=== PATIENT | female | born 1995 | race Caucasian/White ===

== ENCOUNTER 2017-09-10 05:23 | Inpatient (IN) | payer BC, MEDICAID ==
--- NOTE | 2017-09-10 10:22 | PCM.LDHP ---
L&D History of Present Illness - General Date of Service: 09/10/17 Admit Problem/Dx: Admission Diagnosis/Problem Admission Diagnosis/Problem Source of Information: Patient History Limitations: Reports: No Limitations - History of Present Illness Introduction:: 21-year-old 001 TIM 09/17/17 at 39 weeks and 0 days. Group B strep positive. Patient lives in [place] patient has had problems with gestational hypertension and presented to labor and delivery today with irregular contractions and elevated blood pressures. Blood pressures have more normalized now. Temperature outside is -17 and predicted to be -36 tonight patient and live in [facility] which is approximately [address] in good weather. With patient's irregular contractions, sporadic elevated blood pressures, and distance from the hospital will proceed with induction of labor for patient's safety and to hopefully decrease comorbidity and co-mortality for the patient and the if delivery would occur in route while on the Highway end this severe winter watch. Blood type is a positive antibody screen negative initial hemoglobin and hematocrit 02/15/1711.8/38.2 platelets 376,000. Hemoglobin now 10.5 and platelets 219,000. Hepatitis B surface antigen negative hepatitis C negative HIV negative Chlamydia and GC negative rubella titer indicates immunity. 1 hour OB glucose screen on 07/05/17/10/06. Options were given to patient and and plan is as above. Previous delivery at term 38 weeks and 3 days weighted 9 lbs. 12 oz. (4423 g) Timing/Duration: Reports: intermittent Location, : Reports: Abdomen, Lower back Severity: Mild Improves with: Reports: None Worsens with: Reports: None Associated Symptoms: Reports: N - Related Data Allergies/Adverse Reactions: Allergies Allergy/AdvReac Type Severity Reaction Status Date / Time No Known Allergies Allergy Verified 09/10/17 05:57 Home Medications: Home Meds Pnv No.122/Iron/Folic Acid [ Multi Tablet] 1 each PO DAILY 09/10/17 [ History] Past Medical History - Past Health History Medical/Surgical History: Denies Medical/Surgical History Cardiovascular History: Reports: None Respiratory History: Reports: None 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 vits Social & Family History - Family History Family Medical History: Noncontributory - Tobacco Use Smoking Status *Q: Former Smoker (quit when preg. smoked 2 years) Second Hand Smoke Exposure: No - Caffeine Use Caffeine Use: Reports: None - Alcohol Use Days Per Week of Alcohol Use: 0 - Recreational Drug Use Recreational Drug Use: No H&P Review of Systems - Review of Systems: Review Of Systems: See Below General: Reports: No Symptoms HEENT: Reports: No Symptoms Pulmonary: Reports: No Symptoms Cardiovascular: Reports: No Symptoms Gastrointestinal: Reports: No Symptoms Genitourinary: Reports: No Symptoms Musculoskeletal: Reports: No Symptoms Skin: Reports: No Symptoms Psychiatric: Reports: No Symptoms Neurological: Reports: No Symptoms Hematologic/Lymphatic: Reports: No Symptoms Immunologic: Reports: No Symptoms L&D Exam - Exam Exam: See Below - Vital Signs Weight: 281 lb 11.2 oz - OB Specific Fundal Height In cm: 39 Contraction Intensity: Mild Movement: Active Heart Tones: Present Heart Tones per Min: 135 Heart Rate (FHR) Variability: Moderate (6-25 bmp) Presentation: Vertex - Sheehan Score Sheehan Score Cervix Position: Posterior Sheehan Score Consistency: Soft Sheehan Score Effacement: 0-30% Sheehan Score Dilation: 1-2 cm Sheehan Score Infant's Station: -3 Sheehan Score Total: 3 - Exam General: Alert, Oriented HEENT: Conjunctiva Clear, Mucosa Moist & [place], PERRLA Neck: Supple, Trachea Midline Lungs: Clear to Auscultation, Normal Respiratory Effort Cardiovascular: Regular Rate, Regular Rhythm GI/Abdominal Exam: Normal Bowel Sounds, Soft, Non-Tender, No Organomegaly, No Distention Genitourinary: Normal external exam, Normal bimanual exam, Normal speculum exam Extremities: Normal Inspection, Normal Range of Motion, Non-Tender, No Pedal Edema, Normal Capillary Refill Skin: Warm, Dry, Intact Neurological: Reflexes Equal Bilateral Psychiatric: Alert, Normal Affect, Normal Mood - Patient Data Lab Results Last 24 hrs: Laboratory Results - last 24 hr 09/10/17 09/10/17 09/10/17 Range/Units 06:30 06:30 08:30 WBC 8.02 (3.98-10.04) K/mm3 RBC 4.38 (3.98-5.22) M/mm3 Hgb 10.5 L (11.2-15.7) gm/L Hct 32.7 L (34.1-44.9) % MCV 74.7 L (79.4-94.8) fl MCH 24.0 L (25.6-32.2) pg MCHC 32.1 L (32.2-35.5) g/dl RDW Std Deviation 44.9 (36.4-46.3) fL Plt Count 219 (182-369) K/mm3 MPV 11.1 (9.4-12.3) fl Neut % (Auto) 65.3 (34.0-71.1) % Lymph % (Auto) 25.8 (19.3-51.7) % [place] % (Auto) 7.5 (4.7-12.5) % Eos % (Auto) 0.6 L (0.7-5.8) Baso % (Auto) 0.2 (0.1-1.2) % Neut # (Auto) 5.23 (1.56-6.13) K/mm3 Lymph # (Auto) 2.07 (1.18-3.74) K/mm3 [place] # (Auto) 0.60 H (0.24-0.36) K/mm3 Eos # (Auto) 0.05 (0.04-0.36) K/mm3 Baso # (Auto) 0.02 (0.01-0.08) K/mm3 Manual Slide Review Abnormal smear BUN 5 L (7-18) mg/dL Creatinine 0.6 (0.55-1.02) mg/dL Est Cr Clr Drug Dosing 160.39 mL/min Estimated GFR (MDRD) > 60 (>60) mL/min Uric Acid 5.2 (2.6-6.0) mg/dL AST 28 (15-37) U/L ALT 14 (14-59) U/L Lactate Dehydrogenase 164 (81-234) U/L Urine Color Yellow (Yellow) Urine Appearance Clear (Clear) Urine pH 7.0 (5.0-8.0) Ur Specific [place] 1.020 (1.005-1.030) Urine Protein Negative (Negative) Urine Glucose (UA) Negative (Negative) Urine Ketones Negative (Negative) Urine Occult Blood Trace-intact H (Negative) Urine Nitrite Negative (Negative) Urine Bilirubin Negative (Negative) Urine Urobilinogen 0.2 (0.2-1.0) Ur Leukocyte Esterase Negative (Negative) Urine RBC 0-5 (0-5) /hpf Urine WBC 0-5 (0-5) /hpf Ur Epithelial Cells 0-5 (0-5) /hpf Urine Bacteria Few (FEW) /hpf Urine Mucus Few (FEW) /hpf Result Diagrams: 09/10/17 06:30 09/10/17 06:30 - Problem List (1) Anemia affecting second SNOMED Code(s): 65653183 ICD Code: O99.019 - ANEMIA COMPLICATING , UNSPECIFIED TRIMESTER; O09.40 - SUPERVISION OF W GRAND MULTIPARITY, UNSP TRIMESTER Status: Acute Current Visit: Yes (2) GBS carrier SNOMED Code(s): 4127090556161 ICD Code: Z22.330 - CARRIER OF GROUP B STREPTOCOCCUS Status: Acute Current Visit: Yes (3) 39 weeks gestation of SNOMED Code(s): 23026967 ICD Code: Z3A.39 - 39 WEEKS GESTATION OF Status: Acute Current Visit: Yes (4) Gestational hypertension SNOMED Code(s): 24166408 ICD Code: O13.9 - GESTATIONAL HTN W/O SIGNIFICANT PROTEINURIA, UNSP TRIMESTER Status: Acute Current Visit: Yes Qualifiers: Trimester: third trimester Qualified Code(s): O13.3 - Gestational [ -induced] hypertension without significant proteinuria, third trimester Problem List Initiated/Reviewed/Updated: No Orders Last 24hrs: Active Orders 24 hr Category Date Time Status PIH Panel [LIZA] Stat [facility] 09/10/17 06:04 Ordered Assessment/Plan Comment:: Plan induction of labor beginning with Cytotec.
[2017-09-10] MEDS ORDERED: Ampicillin 2 GM in Sodium Chloride 0.9% 100 ML IV ONE (10:25)
[2017-09-10] MEDS ORDERED: Nalbuphine 20 MG/1 ML Amp IVPUSH PRN (10:25)
[2017-09-10] MEDS ORDERED: Ondansetron 4 MG/2 ML SDV IVPUSH PRN (10:25)
[2017-09-10] MEDS ORDERED: Sodium Chloride 0.9% 10 ML Syringe FLUSH PRN (10:25)
[2017-09-10] MEDS ORDERED: Misoprostol 25 MCG (1/4 of 100 MCG) Tab VAG SCH (10:30)
[2017-09-10] MEDS: Lactated Ringers 1,000 ML IV SCH ×3 (11:02→21:31)
[2017-09-10] MEDS ORDERED: Oxytocin/Lactated Ringers 10 UNIT/1,000 ML BAG IV SCH (11:15)
[2017-09-10] MEDS ORDERED: ePHEDrine 50 MG/ML SDV IVPUSH PRN (12:38)
[2017-09-10] MEDS ORDERED: fentaNYL 100 MCG/2 ML SDV EPIDUR PRN (12:38)
[2017-09-10] MEDS ORDERED: diphenhydrAMINE 50 MG/ML SDV IVPUSH PRN (12:38)
[2017-09-10] MEDS ORDERED: Bupivacaine/fentaNYL/NS 100 ML Bag EPIDUR SCH (12:45)
--- NOTE | 2017-09-10 12:48 | PCM.PREANE ---
Preanesthetic Assessment - Anesthesia/Transfusion/Family Hx Anesthesia History: Prior Anesthesia Without Reaction Family History of Anesthesia Reaction: No Transfusion History: No Prior Transfusion(s) - Review of Systems General: No Symptoms Pulmonary: No Symptoms Cardiovascular: No Symptoms Gastrointestinal: No Symptoms Neurological: No Symptoms Other: Reports: None - Physical Assessment Pulse: 84 O2 Sat by Pulse Oximetry: 97 Respiratory Rate: 16 Blood Pressure: 134/65 Temperature: 36.6 C Height: 1.78 m Weight: 127.777 kg ASA Class: 2 Mental Status: Alert & Oriented x3 Airway Class: Mallampati = 1 Dentition: Reports: Normal Dentition Thyro-Mental Finger Breadths: 3 Mouth Opening Finger Breadths: 2 ROM/Head Extension: Full Lungs: Clear to Auscultation, Normal Respiratory Effort Cardiovascular: Regular Rate, Regular Rhythm - Lab Values: Laboratory Last Values WBC 8.02 K/mm3 (3.98-10.04) 09/10/17 06:30 RBC 4.38 M/mm3 (3.98-5.22) 09/10/17 06:30 Hgb 10.5 gm/L (11.2-15.7) L 09/10/17 06:30 Hct 32.7 % (34.1-44.9) L 09/10/17 06:30 MCV 74.7 fl (79.4-94.8) L 09/10/17 06:30 MCH 24.0 pg (25.6-32.2) L 09/10/17 06:30 MCHC 32.1 g/dl (32.2-35.5) L 09/10/17 06:30 RDW Std Deviation 44.9 fL (36.4-46.3) 09/10/17 06:30 Plt Count 219 K/mm3 (182-369) 09/10/17 06:30 MPV 11.1 fl (9.4-12.3) 09/10/17 06:30 Neut % (Auto) 65.3 % (34.0-71.1) 09/10/17 06:30 Lymph % (Auto) 25.8 % (19.3-51.7) 09/10/17 06:30 [place] % (Auto) 7.5 % (4.7-12.5) 09/10/17 06:30 Eos % (Auto) 0.6 (0.7-5.8) L 09/10/17 06:30 Baso % (Auto) 0.2 % (0.1-1.2) 09/10/17 06:30 Neut # (Auto) 5.23 K/mm3 (1.56-6.13) 09/10/17 06:30 Lymph # (Auto) 2.07 K/mm3 (1.18-3.74) 09/10/17 06:30 [place] # (Auto) 0.60 K/mm3 (0.24-0.36) H 09/10/17 06:30 Eos # (Auto) 0.05 K/mm3 (0.04-0.36) 09/10/17 06:30 Baso # (Auto) 0.02 K/mm3 (0.01-0.08) 09/10/17 06:30 Manual Slide Review Abnormal smear 09/10/17 06:30 BUN 5 mg/dL (7-18) L 09/10/17 06:30 Creatinine 0.6 mg/dL (0.55-1.02) 09/10/17 06:30 Est Cr Clr Drug Dosing 160.39 mL/min 09/10/17 06:30 Estimated GFR (MDRD) > 60 mL/min (>60) 09/10/17 06:30 Uric Acid 5.2 mg/dL (2.6-6.0) 09/10/17 06:30 AST 28 U/L (15-37) 09/10/17 06:30 ALT 14 U/L (14-59) 09/10/17 06:30 Lactate Dehydrogenase 164 U/L (81-234) 09/10/17 06:30 Urine Color Yellow (Yellow) 09/10/17 08:30 Urine Appearance Clear (Clear) 09/10/17 08:30 Urine pH 7.0 (5.0-8.0) 09/10/17 08:30 Ur Specific [place] 1.020 (1.005-1.030) 09/10/17 08:30 Urine Protein Negative (Negative) 09/10/17 08:30 Urine Glucose (UA) Negative (Negative) 09/10/17 08:30 Urine Ketones Negative (Negative) 09/10/17 08:30 Urine Occult Blood Trace-intact (Negative) H 09/10/17 08:30 Urine Nitrite Negative (Negative) 09/10/17 08:30 Urine Bilirubin Negative (Negative) 09/10/17 08:30 Urine Urobilinogen 0.2 (0.2-1.0) 09/10/17 08:30 Ur Leukocyte Esterase Negative (Negative) 09/10/17 08:30 Urine RBC 0-5 /hpf (0-5) 09/10/17 08:30 Urine WBC 0-5 /hpf (0-5) 09/10/17 08:30 Ur Epithelial Cells 0-5 /hpf (0-5) 09/10/17 08:30 Urine Bacteria Few /hpf (FEW) 09/10/17 08:30 Urine Mucus Few /hpf (FEW) 09/10/17 08:30 Blood Type A POSITIVE 09/10/17 06:30 Gel Antibody Screen Negative 09/10/17 06:30 - Allergies Allergies/Adverse Reactions: Allergies Allergy/AdvReac Type Severity Reaction Status Date / Time No Known Allergies Allergy Verified 09/10/17 05:57 - Anesthesia Plan Pre-Op Medication Ordered: None - Acknowledgements Anesthesia Type Planned: Epidural Pt an Appropriate Candidate for the Planned Anesthesia: Yes Alternatives and Risks of Anesthesia Discussed w Pt/Guardian: Yes Pt/Guardian Understands and Agrees with Anesthesia Plan: Yes PreAnesthesia Questionnaire - Past Health History Medical/Surgical History: Denies Medical/Surgical History Cardiovascular History: Reports: None Respiratory History: Reports: None Gastrointestinal History: Reports: GERD [employer] History: Reports: - Past Surgical History HEENT Surgical History: Reports: Oral Surgery - History Comment History Comment: home meds. vits - SUBSTANCE USE Smoking Status *Q: Former Smoker (quit when preg. smoked 2 years) Tobacco Use Within Last Twelve Months: Cigarettes Second Hand Smoke Exposure: No Days Per Week of Alcohol Use: 0 Number of Drinks Per Day: 0 Total Drinks Per Week: 0 Recreational Drug Use History: No - HOME MEDS Home Medications: Home Meds Pnv No.122/Iron/Folic Acid [ Multi Tablet] 1 each PO DAILY 09/10/17 [ History] - CURRENT (IN HOUSE) MEDS Current Meds: Current Medications Diphenhydramine HCl (Benadryl) 25 mg IVPUSH Q6H PRN PRN Reason: Itching Ephedrine Sulfate (Ephedrine Sulfate) 5 mg IVPUSH ASDIRECTED PRN PRN Reason: HYPOTENTSION Fentanyl (Sublimaze) 100 mcg EPIDUR Q3H PRN PRN Reason: PAIN Fentanyl/Bupivacaine HCl (Fentanyl/Bupivacaine/Ns 2 Mcg-0.125% 100 Ml) 100 ml EPIDUR ASDIRECTED BLAYNE Ampicillin Sodium 1 gm/ Sodium (Chloride) 100 mls @ 200 mls/hr IV Q4H BLAYNE Lactated Ringer's (Ringers, Lactated) 1,000 mls @ 100 mls/hr IV ASDIRECTED BLAYNE Last Admin: 09/10/17 11:02 Dose: 100 mls/hr Oxytocin 20 unit/ Lactated (Ringer's) 1,002 mls @ 6.01 mls/hr IV TITRATE BLAYNE; 2 MUNITS/MIN PRN Reason: Protocol Oxytocin/Lactated Ringer's (Pitocin In Lr 10 Units/1,000 Ml) 10 unit in 1,000 mls @ 12 mls/hr IV TITRATE BLAYNE; 2 MUNITS/MIN PRN Reason: Protocol Last Admin: 09/10/17 11:31 Dose: 2 munits/min, 12 mls/hr Nalbuphine HCl (Nubain) 10 mg IVPUSH Q2H PRN PRN Reason: Pain (moderate 4-6) Ondansetron HCl (Zofran) 4 mg IVPUSH Q4H PRN PRN Reason: Nausea/Vomiting Sodium Chloride (Saline Flush) 10 ml FLUSH ASDIRECTED PRN PRN Reason: Keep Vein Open Discontinued Medications Ampicillin Sodium 2 gm/ Sodium (Chloride) 100 mls @ 200 mls/hr IV ONETIME ONE Stop: 09/10/17 10:54 Last Admin: 09/10/17 11:01 Dose: 200 mls/hr Misoprostol (Cytotec) 25 mcg VAG Q3H BLAYNE Stop: 09/10/17 16:31 Last Admin: 09/10/17 11:32 Dose: Not Given
[2017-09-10] MEDS: Ampicillin 1 GM in Sodium Chloride 0.9% 100 ML IV SCH ×3 (14:42→23:26)
--- NOTE | 2017-09-10 21:23 | PCM.SN ---
- Free Text/Narrative Note: Spontaneous rupture membranes 1948 hrs. clear fluid. Cervix now at 2120 hours is 5 cm 60% effaced soft mid position Vertex -1 category 1 heart rate continuing Pitocin augmentation.
[2017-09-11] MEDS ORDERED: Lidocaine 1% 50 ML MDV ONE (00:11)
--- NOTE | 2017-09-11 00:33 | PCM.DEL ---
L & D Note - General Info Date of Service: 09/11/17 Mother's Due Date: 09/17/17 - Delivery Note Labor: Augmented by Oxytocin Delivery Outcome: Livebirth (Female liveborn 0008 hours 09/11/17 PRADIP Apgars 9/9 weight 4150 g 9 pounds 2.4 ounces nuchal cord 1) Infant Delivery Method: Spontaneous Vaginal Delivery-Single Delivery Mode: Spontaneous Presentation: Left Occiput Anterior (PRADIP) Nuchal Cord: Present (Times one), Reduced Prep: Povidone-Iodine (Betadine Anesthesia Type: Local, Epidural Anesthetic: Lidocaine (Xylocaine) 1% Plain (15 mL) Local Anesthetic Volume: Other (15 mL) Amniotic Fluid Description: Clear Episiotomy Type: None Laceration: 2nd Degree (Midline) Suture type: Vicryl (2-0 Vicryl times one), Other (Monocryl 3-0 times one) Suture size: 2-0 Placenta: Intact, Spontaneous (0012 hours on 09/11/2017 intact central cord insertion) Cord: 3 Vessels Estimated Blood Loss: 500 Resuscitation Needed: No : Suctioned, Bulb Syringe, Stimulated, Warmed, [place] Used, Warmer Used Provider: Sánchez Robertson Score 1 min: 9 Score 5 min: 9 - Patient Data Vitals - Most Recent: Last Vital Signs Temp 97.9 F 09/10/17 12:48 Pulse 84 09/10/17 12:48 Resp 16 09/10/17 12:48 BP 134/65 09/10/17 12:48 Pulse Ox 97 09/10/17 12:48 Weight - Most Recent: 281 lb 11.2 oz I&O - Last 24 Hours: Intake & Output 09/10/17 09/10/17 09/11/17 14:59 22:59 06:59 Intake Total 200 Balance 200 Lab Results Last 24 Hours: Laboratory Results - last 24 hr 09/10/17 09/10/17 09/10/17 Range/Units 06:30 06:30 06:30 WBC 8.02 (3.98-10.04) K/mm3 RBC 4.38 (3.98-5.22) M/mm3 Hgb 10.5 L (11.2-15.7) gm/L Hct 32.7 L (34.1-44.9) % MCV 74.7 L (79.4-94.8) fl MCH 24.0 L (25.6-32.2) pg MCHC 32.1 L (32.2-35.5) g/dl RDW Std Deviation 44.9 (36.4-46.3) fL Plt Count 219 (182-369) K/mm3 MPV 11.1 (9.4-12.3) fl Neut % (Auto) 65.3 (34.0-71.1) % Lymph % (Auto) 25.8 (19.3-51.7) % [place] % (Auto) 7.5 (4.7-12.5) % Eos % (Auto) 0.6 L (0.7-5.8) Baso % (Auto) 0.2 (0.1-1.2) % Neut # (Auto) 5.23 (1.56-6.13) K/mm3 Lymph # (Auto) 2.07 (1.18-3.74) K/mm3 [place] # (Auto) 0.60 H (0.24-0.36) K/mm3 Eos # (Auto) 0.05 (0.04-0.36) K/mm3 Baso # (Auto) 0.02 (0.01-0.08) K/mm3 Manual Slide Review Abnormal smear BUN 5 L (7-18) mg/dL Creatinine 0.6 (0.55-1.02) mg/dL Est Cr Clr Drug Dosing 160.39 mL/min Estimated GFR (MDRD) > 60 (>60) mL/min Uric Acid 5.2 (2.6-6.0) mg/dL AST 28 (15-37) U/L ALT 14 (14-59) U/L Lactate Dehydrogenase 164 (81-234) U/L Urine Color (Yellow) Urine Appearance (Clear) Urine pH (5.0-8.0) Ur Specific [place] (1.005-1.030) Urine Protein (Negative) Urine Glucose (UA) (Negative) Urine Ketones (Negative) Urine Occult Blood (Negative) Urine Nitrite (Negative) Urine Bilirubin (Negative) Urine Urobilinogen (0.2-1.0) Ur Leukocyte Esterase (Negative) Urine RBC (0-5) /hpf Urine WBC (0-5) /hpf Ur Epithelial Cells (0-5) /hpf Urine Bacteria (FEW) /hpf Urine Mucus (FEW) /hpf Blood Type A POSITIVE Gel Antibody Screen Negative 09/10/17 Range/Units 08:30 WBC (3.98-10.04) K/mm3 RBC (3.98-5.22) M/mm3 Hgb (11.2-15.7) gm/L Hct (34.1-44.9) % MCV (79.4-94.8) fl MCH (25.6-32.2) pg MCHC (32.2-35.5) g/dl RDW Std Deviation (36.4-46.3) fL Plt Count (182-369) K/mm3 MPV (9.4-12.3) fl Neut % (Auto) (34.0-71.1) % Lymph % (Auto) (19.3-51.7) % [place] % (Auto) (4.7-12.5) % Eos % (Auto) (0.7-5.8) Baso % (Auto) (0.1-1.2) % Neut # (Auto) (1.56-6.13) K/mm3 Lymph # (Auto) (1.18-3.74) K/mm3 [place] # (Auto) (0.24-0.36) K/mm3 Eos # (Auto) (0.04-0.36) K/mm3 Baso # (Auto) (0.01-0.08) K/mm3 Manual Slide Review BUN (7-18) mg/dL Creatinine (0.55-1.02) mg/dL Est Cr Clr Drug Dosing mL/min Estimated GFR (MDRD) (>60) mL/min Uric Acid (2.6-6.0) mg/dL AST (15-37) U/L ALT (14-59) U/L Lactate Dehydrogenase (81-234) U/L Urine Color Yellow (Yellow) Urine Appearance Clear (Clear) Urine pH 7.0 (5.0-8.0) Ur Specific [place] 1.020 (1.005-1.030) Urine Protein Negative (Negative) Urine Glucose (UA) Negative (Negative) Urine Ketones Negative (Negative) Urine Occult Blood Trace-intact H (Negative) Urine Nitrite Negative (Negative) Urine Bilirubin Negative (Negative) Urine Urobilinogen 0.2 (0.2-1.0) Ur Leukocyte Esterase Negative (Negative) Urine RBC 0-5 (0-5) /hpf Urine WBC 0-5 (0-5) /hpf Ur Epithelial Cells 0-5 (0-5) /hpf Urine Bacteria Few (FEW) /hpf Urine Mucus Few (FEW) /hpf Blood Type Gel Antibody Screen Med Orders - Current: Current Medications Diphenhydramine HCl (Benadryl) 25 mg IVPUSH Q6H PRN PRN Reason: Itching Ephedrine Sulfate (Ephedrine Sulfate) 5 mg IVPUSH ASDIRECTED PRN PRN Reason: HYPOTENTSION Fentanyl (Sublimaze) 100 mcg EPIDUR Q3H PRN PRN Reason: PAIN Last Admin: 09/10/17 20:40 Dose: 100 mcg Fentanyl/Bupivacaine HCl (Fentanyl/Bupivacaine/Ns 2 Mcg-0.125% 100 Ml) 100 ml EPIDUR ASDIRECTED BLAYNE Last Admin: 09/10/17 20:40 Dose: 100 ml Ampicillin Sodium 1 gm/ Sodium (Chloride) 100 mls @ 200 mls/hr IV Q4H BLAYNE Last Admin: 09/10/17 23:26 Dose: 200 mls/hr Lactated Ringer's (Ringers, Lactated) 1,000 mls @ 100 mls/hr IV ASDIRECTED BLAYNE Last Admin: 09/10/17 21:31 Dose: 999 mls/hr Oxytocin 20 unit/ Lactated (Ringer's) 1,002 mls @ 6.01 mls/hr IV TITRATE BLAYNE; 2 MUNITS/MIN PRN Reason: Protocol Oxytocin/Lactated Ringer's (Pitocin In Lr 10 Units/1,000 Ml) 10 unit in 1,000 mls @ 12 mls/hr IV TITRATE BLAYNE; 2 MUNITS/MIN PRN Reason: Protocol Last Titration: 09/10/17 23:00 Dose: 17 munits/min, 102 mls/hr Nalbuphine HCl (Nubain) 10 mg IVPUSH Q2H PRN PRN Reason: Pain (moderate 4-6) Last Admin: 09/10/17 18:56 Dose: 10 mg Ondansetron HCl (Zofran) 4 mg IVPUSH Q4H PRN PRN Reason: Nausea/Vomiting Sodium Chloride (Saline Flush) 10 ml FLUSH ASDIRECTED PRN PRN Reason: Keep Vein Open Discontinued Medications Ampicillin Sodium 2 gm/ Sodium (Chloride) 100 mls @ 200 mls/hr IV ONETIME ONE Stop: 09/10/17 10:54 Last Admin: 09/10/17 11:01 Dose: 200 mls/hr Lidocaine HCl (Xylocaine 1%) Confirm Administered Dose 50 ml .ROUTE .STK-MED ONE Stop: 09/11/17 00:12 Misoprostol (Cytotec) 25 mcg VAG Q3H BLAYNE Stop: 09/10/17 16:31 Last Admin: 09/10/17 11:32 Dose: Not Given - Problem List & Annotations (1) Anemia affecting second SNOMED Code(s): 14854052 Code(s): O99.019 - ANEMIA COMPLICATING , UNSPECIFIED TRIMESTER; O09.40 - SUPERVISION OF W GRAND MULTIPARITY, UNSP TRIMESTER Status: Acute Current Visit: Yes (2) GBS carrier SNOMED Code(s): 6011382254232 Code(s): Z22.330 - CARRIER OF GROUP B STREPTOCOCCUS Status: Acute Current Visit: Yes (3) 39 weeks gestation of SNOMED Code(s): 61880892 Code(s): Z3A.39 - 39 WEEKS GESTATION OF Status: Acute Current Visit: Yes (4) Gestational hypertension SNOMED Code(s): 59953222 Code(s): O13.9 - GESTATIONAL HTN W/O SIGNIFICANT PROTEINURIA, UNSP TRIMESTER Status: Acute Current Visit: Yes Qualifiers: Trimester: third trimester Qualified Code(s): O13.3 - Gestational [ -induced] hypertension without significant proteinuria, third trimester (5) Second degree perineal laceration, delivered, current hospitalization SNOMED Code(s): 672908974 Code(s): O70.1 - SECOND DEGREE PERINEAL LACERATION DURING DELIVERY Status: Acute Current Visit: Yes (6) Nuchal cord without compression, delivered, current hospitalization SNOMED Code(s): 97883388 Code(s): O69.81X0 - LABOR AND DEL COMP BY CORD AROUND NECK, W/O COMPRSN, UNSP Status: Acute Current Visit: Yes - Problem List Review Problem List Initiated/Reviewed/Updated: No - My Orders Last 24 Hours: My Active Orders 09/10/17 06:04 PIH Panel [OM.PC] Stat 09/10/17 10:25 Patient Status [ADT] Routine Activity as Tolerated [RC] PFP Communication Order [RC] ASDIRECTED Notify Provider [RC] PFP Notify Provider [RC] PRN Vital Signs [RC] PER UNIT ROUTINE Nalbuphine [Nubain] 10 mg IVPUSH Q2H PRN Ondansetron [Zofran] 4 mg IVPUSH Q4H PRN Sodium Chloride 0.9% [Saline Flush] 10 ml FLUSH ASDIRECTED PRN Electronic Heart Tones Ext w TOCO [WOMSER] Routine Electronic Heart Tones Internal [WOMSER] Per Unit Routine Peripheral IV Insertion Adult [OM.PC] Routine Resuscitation Status Routine 09/10/17 10:26 Peripheral IV Care [RC] . DIRECTED 09/10/17 10:30 Lactated Ringers [Ringers, Lactated] 1,000 ml IV ASDIRECTED Oxytocin [Pitocin] 20 unit Lactated Ringers [Ringers, Lactated] 1,000 ml IV TITRATE 09/10/17 11:15 Oxytocin/Lactated Ringers [Pitocin in LR 10 Units/1,000 ML] 10 unit in 1,000 ml IV TITRATE 09/10/17 14:30 Ampicillin 1 gm Sodium Chloride 0.9% [Normal Saline] 100 ml IV Q4H 09/10/17 Breakfast Regular Diet [DIET] - Plan Plan:: Plan induction of labor beginning with Cytotec.
[2017-09-11] MEDS ORDERED: Lanolin 100% Cream 7 GM Tube TOP PRN (00:40)
[2017-09-11] MEDS ORDERED: Witch Hazel Medicated Pads 100/Jar TOP PRN (00:40)
[2017-09-11] MEDS ORDERED: Acetaminophen 325 MG Tab PO PRN (00:40)
[2017-09-11] MEDS ORDERED: Benzocaine/Menthol 20%-0.5% Spray 56 GM Canister TOP PRN (00:40)
[2017-09-11] MEDS ORDERED: Docusate Sodium 100 MG Cap PO PRN (00:40)
[2017-09-11] MEDS ORDERED: Acetaminophen/oxyCODONE 325-5 MG Tab PO PRN (00:40)
[2017-09-11] MEDS: Ibuprofen 600 MG Tab PO PRN ×4 (01:40→22:57)
--- NOTE | 2017-09-11 11:13 | PCM.SN ---
- Free Text/Narrative Note: day 1 Afebrile, uterus involuting normally, no heavy vaginal bleeding, no leg cramping. Breast-feeding.
[2017-09-11] MEDS ORDERED: Bupivacaine 0.25% 10 ML SDV ONE (22:22)
[2017-09-12] MEDS: Ibuprofen 600 MG Tab PO PRN ×2 (05:32→10:23)
--- NOTE | 2017-09-12 08:09 | PCM.DCSUM1 ---
Discharge Summary - Hospital Course Free Text/Narrative:: [facility] LIVE L/D Delivery Note Patient Name: KANNAN CHENG Date of : 89 Patient Status: Inpatient Attending Provider: Sánchez Robertson Date: 09/11/17 00:29 Initialization Date: 09/11/17 00:29 L & D Note - General Info Date of Service: 09/11/17 Mother's Due Date: 09/17/17 - Delivery Note Labor: Augmented by Oxytocin Delivery Outcome: Livebirth (Female liveborn 0008 hours 09/11/17 PRADIP Apgars 9/9 weight 4150 g 9 pounds 2.4 ounces nuchal cord 1) Infant Delivery Method: Spontaneous Vaginal Delivery-Single Infant Delivery Mode: Spontaneous Presentation: Left Occiput Anterior (PRADIP) Nuchal Cord: Present (Times one), Reduced Prep: Povidone-Iodine (Betadine Anesthesia Type: Local, Epidural Anesthetic: Lidocaine (Xylocaine) 1% Plain (15 mL) Local Anesthetic Volume: Other (15 mL) Amniotic Fluid Description: Clear Episiotomy Type: None Laceration: 2nd Degree (Midline) Suture type: Vicryl (2-0 Vicryl times one), Other (Monocryl 3-0 times one) Suture size: 2-0 Placenta: Intact, Spontaneous (0012 hours on 09/11/2017 intact central cord insertion) Cord: 3 Vessels Estimated Blood Loss: 500 Resuscitation Needed: No [place]: Suctioned, Bulb Syringe, Stimulated, Warmed, [place] Used, Warmer Used Provider: Sánchez Robertson Score 1 min: 9 Score 5 min: 9 - Patient Data Vitals - Most Recent: Last Vital Signs Temp 97.9 F 09/10/17 12:48 Pulse 84 09/10/17 12:48 Resp 16 09/10/17 12:48 BP 134/65 09/10/17 12:48 Pulse Ox 97 09/10/17 12:48 Weight - Most Recent: 281 lb 11.2 oz I&O - Last 24 Hours: Intake & Output 09/10/17 09/10/17 09/11/17 14:59 22:59 06:59 Intake Total 200 Balance 200 Lab Results Last 24 Hours: Laboratory Results - last 24 hr 09/10/17 09/10/17 09/10/17 Range/Units 06:30 06:30 06:30 WBC 8.02 (3.98-10.04) K/mm3 RBC 4.38 (3.98-5.22) M/mm3 Hgb 10.5 L (11.2-15.7) gm/L Hct 32.7 L (34.1-44.9) % MCV 74.7 L (79.4-94.8) fl MCH 24.0 L (25.6-32.2) pg MCHC 32.1 L (32.2-35.5) g/dl RDW Std Deviation 44.9 (36.4-46.3) fL Plt Count 219 (182-369) K/mm3 MPV 11.1 (9.4-12.3) fl Neut % (Auto) 65.3 (34.0-71.1) % Lymph % (Auto) 25.8 (19.3-51.7) % [place] % (Auto) 7.5 (4.7-12.5) % Eos % (Auto) 0.6 L (0.7-5.8) Baso % (Auto) 0.2 (0.1-1.2) % Neut # (Auto) 5.23 (1.56-6.13) K/mm3 Lymph # (Auto) 2.07 (1.18-3.74) K/mm3 [place] # (Auto) 0.60 H (0.24-0.36) K/mm3 Eos # (Auto) 0.05 (0.04-0.36) K/mm3 Baso # (Auto) 0.02 (0.01-0.08) K/mm3 Manual Slide Review Abnormal smear BUN 5 L (7-18) mg/dL Creatinine 0.6 (0.55-1.02) mg/dL Est Cr Clr Drug Dosing 160.39 mL/min Estimated GFR (MDRD) > 60 (>60) mL/min Uric Acid 5.2 (2.6-6.0) mg/dL AST 28 (15-37) U/L ALT 14 (14-59) U/L Lactate Dehydrogenase 164 (81-234) U/L Urine Color (Yellow) Urine Appearance (Clear) Urine pH (5.0-8.0) Ur Specific [place] (1.005-1.030) Urine Protein (Negative) Urine Glucose (UA) (Negative) Urine Ketones (Negative) Urine Occult Blood (Negative) Urine Nitrite (Negative) Urine Bilirubin (Negative) Urine Urobilinogen (0.2-1.0) Ur Leukocyte Esterase (Negative) Urine RBC (0-5) /hpf Urine WBC (0-5) /hpf Ur Epithelial Cells (0-5) /hpf Urine Bacteria (FEW) /hpf Urine Mucus (FEW) /hpf Blood Type A POSITIVE Gel Antibody Screen Negative 09/10/17 Range/Units 08:30 WBC (3.98-10.04) K/mm3 RBC (3.98-5.22) M/mm3 Hgb (11.2-15.7) gm/L Hct (34.1-44.9) % MCV (79.4-94.8) fl MCH (25.6-32.2) pg MCHC (32.2-35.5) g/dl RDW Std Deviation (36.4-46.3) fL Plt Count (182-369) K/mm3 MPV (9.4-12.3) fl Neut % (Auto) (34.0-71.1) % Lymph % (Auto) (19.3-51.7) % [place] % (Auto) (4.7-12.5) % Eos % (Auto) (0.7-5.8) Baso % (Auto) (0.1-1.2) % Neut # (Auto) (1.56-6.13) K/mm3 Lymph # (Auto) (1.18-3.74) K/mm3 [place] # (Auto) (0.24-0.36) K/mm3 Eos # (Auto) (0.04-0.36) K/mm3 Baso # (Auto) (0.01-0.08) K/mm3 Manual Slide Review BUN (7-18) mg/dL Creatinine (0.55-1.02) mg/dL Est Cr Clr Drug Dosing mL/min Estimated GFR (MDRD) (>60) mL/min Uric Acid (2.6-6.0) mg/dL AST (15-37) U/L ALT (14-59) U/L Lactate Dehydrogenase (81-234) U/L Urine Color Yellow (Yellow) Urine Appearance Clear (Clear) Urine pH 7.0 (5.0-8.0) Ur Specific [place] 1.020 (1.005-1.030) Urine Protein Negative (Negative) Urine Glucose (UA) Negative (Negative) Urine Ketones Negative (Negative) Urine Occult Blood Trace-intact H (Negative) Urine Nitrite Negative (Negative) Urine Bilirubin Negative (Negative) Urine Urobilinogen 0.2 (0.2-1.0) Ur Leukocyte Esterase Negative (Negative) Urine RBC 0-5 (0-5) /hpf Urine WBC 0-5 (0-5) /hpf Ur Epithelial Cells 0-5 (0-5) /hpf Urine Bacteria Few (FEW) /hpf Urine Mucus Few (FEW) /hpf Blood Type Gel Antibody Screen Med Orders - Current: Current Medications Diphenhydramine HCl (Benadryl) 25 mg IVPUSH Q6H PRN PRN Reason: Itching Ephedrine Sulfate (Ephedrine Sulfate) 5 mg IVPUSH ASDIRECTED PRN PRN Reason: HYPOTENTSION Fentanyl (Sublimaze) 100 mcg EPIDUR Q3H PRN PRN Reason: PAIN Last Admin: 09/10/17 20:40 Dose: 100 mcg Fentanyl/Bupivacaine HCl (Fentanyl/Bupivacaine/Ns 2 Mcg-0.125% 100 Ml) 100 ml EPIDUR ASDIRECTED BLAYNE Last Admin: 09/10/17 20:40 Dose: 100 ml Ampicillin Sodium 1 gm/ Sodium (Chloride) 100 mls @ 200 mls/hr IV Q4H BLAYNE Last Admin: 09/10/17 23:26 Dose: 200 mls/hr Lactated Ringer's (Ringers, Lactated) 1,000 mls @ 100 mls/hr IV ASDIRECTED BLAYNE Last Admin: 09/10/17 21:31 Dose: 999 mls/hr Oxytocin 20 unit/ Lactated (Ringer's) 1,002 mls @ 6.01 mls/hr IV TITRATE LBAYNE; 2 MUNITS/MIN PRN Reason: Protocol Oxytocin/Lactated Ringer's (Pitocin In Lr 10 Units/1,000 Ml) 10 unit in 1,000 mls @ 12 mls/hr IV TITRATE BLAYNE; 2 MUNITS/MIN PRN Reason: Protocol Last Titration: 09/10/17 23:00 Dose: 17 munits/min, 102 mls/hr Nalbuphine HCl (Nubain) 10 mg IVPUSH Q2H PRN PRN Reason: Pain (moderate 4-6) Last Admin: 09/10/17 18:56 Dose: 10 mg Ondansetron HCl (Zofran) 4 mg IVPUSH Q4H PRN PRN Reason: Nausea/Vomiting Sodium Chloride (Saline Flush) 10 ml FLUSH ASDIRECTED PRN PRN Reason: Keep Vein Open Discontinued Medications Ampicillin Sodium 2 gm/ Sodium (Chloride) 100 mls @ 200 mls/hr IV ONETIME ONE Stop: 09/10/17 10:54 Last Admin: 09/10/17 11:01 Dose: 200 mls/hr Lidocaine HCl (Xylocaine 1%) Confirm Administered Dose 50 ml .ROUTE .STK-MED ONE Stop: 09/11/17 00:12 Misoprostol (Cytotec) 25 mcg VAG Q3H BLAYNE Stop: 09/10/17 16:31 Last Admin: 09/10/17 11:32 Dose: Not Given - Problem List & Annotations (1) Anemia affecting second SNOMED Code(s): 84712210 Code(s): O99.019 - ANEMIA COMPLICATING , UNSPECIFIED TRIMESTER; O09.40 - SUPERVISION OF W GRAND MULTIPARITY, UNSP TRIMESTER Status: Acute Current Visit: Yes (2) GBS carrier SNOMED Code(s): 3926374383071 Code(s): Z22.330 - CARRIER OF GROUP B STREPTOCOCCUS Status: Acute Current Visit: Yes (3) 39 weeks gestation of SNOMED Code(s): 18367037 Code(s): Z3A.39 - 39 WEEKS GESTATION OF Status: Acute Current Visit: Yes (4) Gestational hypertension SNOMED Code(s): 26444322 Code(s): O13.9 - GESTATIONAL HTN W/O SIGNIFICANT PROTEINURIA, UNSP TRIMESTER Status: Acute Current Visit: Yes Qualifiers: Trimester: third trimester Qualified Code(s): O13.3 - Gestational [ -induced] hypertension without significant proteinuria, third trimester (5) Second degree perineal laceration, delivered, current hospitalization SNOMED Code(s): 748878826 Code(s): O70.1 - SECOND DEGREE PERINEAL LACERATION DURING DELIVERY Status: Acute Current Visit: Yes (6) Nuchal cord without compression, delivered, current hospitalization SNOMED Code(s): 11325741 Code(s): O69.81X0 - LABOR AND DEL COMP BY CORD AROUND NECK, W/O COMPRSN, UNSP Status: Acute Current Visit: Yes - Problem List Review Problem List Initiated/Reviewed/Updated: No - My Orders Last 24 Hours: My Active Orders 09/10/17 06:04 PIH Panel [OM.PC] Stat 09/10/17 10:25 Patient Status [ADT] Routine Activity as Tolerated [RC] PFP Communication Order [RC] ASDIRECTED Notify Provider [RC] PFP Notify Provider [RC] PRN Vital Signs [RC] PER UNIT ROUTINE Nalbuphine [Nubain] 10 mg IVPUSH Q2H PRN Ondansetron [Zofran] 4 mg IVPUSH Q4H PRN Sodium Chloride 0.9% [Saline Flush] 10 ml FLUSH ASDIRECTED PRN Electronic Heart Tones Ext w TOCO [WOMSER] Routine Electronic Heart Tones Internal [WOMSER] Per Unit Routine Peripheral IV Insertion Adult [OM.PC] Routine Resuscitation Status Routine 09/10/17 10:26 Peripheral IV Care [RC] . DIRECTED 09/10/17 10:30 Lactated Ringers [Ringers, Lactated] 1,000 ml IV ASDIRECTED Oxytocin [Pitocin] 20 unit Lactated Ringers [Ringers, Lactated] 1,000 ml IV TITRATE 09/10/17 11:15 Oxytocin/Lactated Ringers [Pitocin in LR 10 Units/1,000 ML] 10 unit in 1,000 ml IV TITRATE 09/10/17 14:30 Ampicillin 1 gm Sodium Chloride 0.9% [Normal Saline] 100 ml IV Q4H 09/10/17 Breakfast Regular Diet [DIET] - Plan Plan:: Plan induction of labor beginning with Cytotec. HPI Initial Comments: [facility] LIVE L/D Delivery Note Patient Name: KANNAN CHENG Date of : 89 Patient Status: Inpatient Attending Provider: Sánchez Robertson Date: 09/11/17 00:29 Initialization Date: 09/11/17 00:29 L & D Note - General Info Date of Service: 09/11/17 Mother's Due Date: 09/17/17 - Delivery Note Labor: Augmented by Oxytocin Delivery Outcome: Livebirth (Female liveborn 0008 hours 09/11/17 PRADIP Apgars 9/9 weight 4150 g 9 pounds 2.4 ounces nuchal cord 1) Delivery Method: Spontaneous Vaginal Delivery-Single Delivery Mode: Spontaneous Presentation: Left Occiput Anterior (PRADIP) Nuchal Cord: Present (Times one), Reduced Prep: Povidone-Iodine (Betadine Anesthesia Type: Local, Epidural Anesthetic: Lidocaine (Xylocaine) 1% Plain (15 mL) Local Anesthetic Volume: Other (15 mL) Amniotic Fluid Description: Clear Episiotomy Type: None Laceration: 2nd Degree (Midline) Suture type: Vicryl (2-0 Vicryl times one), Other (Monocryl 3-0 times one) Suture size: 2-0 Placenta: Intact, Spontaneous (0012 hours on 09/11/2017 intact central cord insertion) Cord: 3 Vessels Estimated Blood Loss: 500 Resuscitation Needed: No [place]: Suctioned, Bulb Syringe, Stimulated, Warmed, [place] Used, Warmer Used Provider: Sánchez Robertson Score 1 min: 9 Score 5 min: 9 - Patient Data Vitals - Most Recent: Last Vital Signs Temp 97.9 F 09/10/17 12:48 Pulse 84 09/10/17 12:48 Resp 16 09/10/17 12:48 BP 134/65 09/10/17 12:48 Pulse Ox 97 09/10/17 12:48 Weight - Most Recent: 281 lb 11.2 oz I&O - Last 24 Hours: Intake & Output 09/10/17 09/10/17 09/11/17 14:59 22:59 06:59 Intake Total 200 Balance 200 Lab Results Last 24 Hours: Laboratory Results - last 24 hr 09/10/17 09/10/17 09/10/17 Range/Units 06:30 06:30 06:30 WBC 8.02 (3.98-10.04) K/mm3 RBC 4.38 (3.98-5.22) M/mm3 Hgb 10.5 L (11.2-15.7) gm/L Hct 32.7 L (34.1-44.9) % MCV 74.7 L (79.4-94.8) fl MCH 24.0 L (25.6-32.2) pg MCHC 32.1 L (32.2-35.5) g/dl RDW Std Deviation 44.9 (36.4-46.3) fL Plt Count 219 (182-369) K/mm3 MPV 11.1 (9.4-12.3) fl Neut % (Auto) 65.3 (34.0-71.1) % Lymph % (Auto) 25.8 (19.3-51.7) % [place] % (Auto) 7.5 (4.7-12.5) % Eos % (Auto) 0.6 L (0.7-5.8) Baso % (Auto) 0.2 (0.1-1.2) % Neut # (Auto) 5.23 (1.56-6.13) K/mm3 Lymph # (Auto) 2.07 (1.18-3.74) K/mm3 [place] # (Auto) 0.60 H (0.24-0.36) K/mm3 Eos # (Auto) 0.05 (0.04-0.36) K/mm3 Baso # (Auto) 0.02 (0.01-0.08) K/mm3 Manual Slide Review Abnormal smear BUN 5 L (7-18) mg/dL Creatinine 0.6 (0.55-1.02) mg/dL Est Cr Clr Drug Dosing 160.39 mL/min Estimated GFR (MDRD) > 60 (>60) mL/min Uric Acid 5.2 (2.6-6.0) mg/dL AST 28 (15-37) U/L ALT 14 (14-59) U/L Lactate Dehydrogenase 164 (81-234) U/L Urine Color (Yellow) Urine Appearance (Clear) Urine pH (5.0-8.0) Ur Specific [place] (1.005-1.030) Urine Protein (Negative) Urine Glucose (UA) (Negative) Urine Ketones (Negative) Urine Occult Blood (Negative) Urine Nitrite (Negative) Urine Bilirubin (Negative) Urine Urobilinogen (0.2-1.0) Ur Leukocyte Esterase (Negative) Urine RBC (0-5) /hpf Urine WBC (0-5) /hpf Ur Epithelial Cells (0-5) /hpf Urine Bacteria (FEW) /hpf Urine Mucus (FEW) /hpf Blood Type A POSITIVE Gel Antibody Screen Negative 09/10/17 Range/Units 08:30 WBC (3.98-10.04) K/mm3 RBC (3.98-5.22) M/mm3 Hgb (11.2-15.7) gm/L Hct (34.1-44.9) % MCV (79.4-94.8) fl MCH (25.6-32.2) pg MCHC (32.2-35.5) g/dl RDW Std Deviation (36.4-46.3) fL Plt Count (182-369) K/mm3 MPV (9.4-12.3) fl Neut % (Auto) (34.0-71.1) % Lymph % (Auto) (19.3-51.7) % [place] % (Auto) (4.7-12.5) % Eos % (Auto) (0.7-5.8) Baso % (Auto) (0.1-1.2) % Neut # (Auto) (1.56-6.13) K/mm3 Lymph # (Auto) (1.18-3.74) K/mm3 [place] # (Auto) (0.24-0.36) K/mm3 Eos # (Auto) (0.04-0.36) K/mm3 Baso # (Auto) (0.01-0.08) K/mm3 Manual Slide Review BUN (7-18) mg/dL Creatinine (0.55-1.02) mg/dL Est Cr Clr Drug Dosing mL/min Estimated GFR (MDRD) (>60) mL/min Uric Acid (2.6-6.0) mg/dL AST (15-37) U/L ALT (14-59) U/L Lactate Dehydrogenase (81-234) U/L Urine Color Yellow (Yellow) Urine Appearance Clear (Clear) Urine pH 7.0 (5.0-8.0) Ur Specific [place] 1.020 (1.005-1.030) Urine Protein Negative (Negative) Urine Glucose (UA) Negative (Negative) Urine Ketones Negative (Negative) Urine Occult Blood Trace-intact H (Negative) Urine Nitrite Negative (Negative) Urine Bilirubin Negative (Negative) Urine Urobilinogen 0.2 (0.2-1.0) Ur Leukocyte Esterase Negative (Negative) Urine RBC 0-5 (0-5) /hpf Urine WBC 0-5 (0-5) /hpf Ur Epithelial Cells 0-5 (0-5) /hpf Urine Bacteria Few (FEW) /hpf Urine Mucus Few (FEW) /hpf Blood Type Gel Antibody Screen Med Orders - Current: Current Medications Diphenhydramine HCl (Benadryl) 25 mg IVPUSH Q6H PRN PRN Reason: Itching Ephedrine Sulfate (Ephedrine Sulfate) 5 mg IVPUSH ASDIRECTED PRN PRN Reason: HYPOTENTSION Fentanyl (Sublimaze) 100 mcg EPIDUR Q3H PRN PRN Reason: PAIN Last Admin: 09/10/17 20:40 Dose: 100 mcg Fentanyl/Bupivacaine HCl (Fentanyl/Bupivacaine/Ns 2 Mcg-0.125% 100 Ml) 100 ml EPIDUR ASDIRECTED BLAYNE Last Admin: 09/10/17 20:40 Dose: 100 ml Ampicillin Sodium 1 gm/ Sodium (Chloride) 100 mls @ 200 mls/hr IV Q4H BLAYNE Last Admin: 09/10/17 23:26 Dose: 200 mls/hr Lactated Ringer's (Ringers, Lactated) 1,000 mls @ 100 mls/hr IV ASDIRECTED BLAYNE Last Admin: 09/10/17 21:31 Dose: 999 mls/hr Oxytocin 20 unit/ Lactated (Ringer's) 1,002 mls @ 6.01 mls/hr IV TITRATE BLAYNE; 2 MUNITS/MIN PRN Reason: Protocol Oxytocin/Lactated Ringer's (Pitocin In Lr 10 Units/1,000 Ml) 10 unit in 1,000 mls @ 12 mls/hr IV TITRATE BLAYNE; 2 MUNITS/MIN PRN Reason: Protocol Last Titration: 09/10/17 23:00 Dose: 17 munits/min, 102 mls/hr Nalbuphine HCl (Nubain) 10 mg IVPUSH Q2H PRN PRN Reason: Pain (moderate 4-6) Last Admin: 09/10/17 18:56 Dose: 10 mg Ondansetron HCl (Zofran) 4 mg IVPUSH Q4H PRN PRN Reason: Nausea/Vomiting Sodium Chloride (Saline Flush) 10 ml FLUSH ASDIRECTED PRN PRN Reason: Keep Vein Open Discontinued Medications Ampicillin Sodium 2 gm/ Sodium (Chloride) 100 mls @ 200 mls/hr IV ONETIME ONE Stop: 09/10/17 10:54 Last Admin: 09/10/17 11:01 Dose: 200 mls/hr Lidocaine HCl (Xylocaine 1%) Confirm Administered Dose 50 ml .ROUTE .STK-MED ONE Stop: 09/11/17 00:12 Misoprostol (Cytotec) 25 mcg VAG Q3H BLAYNE Stop: 09/10/17 16:31 Last Admin: 09/10/17 11:32 Dose: Not Given - Problem List & Annotations (1) Anemia affecting second SNOMED Code(s): 02470689 Code(s): O99.019 - ANEMIA COMPLICATING , UNSPECIFIED TRIMESTER; O09.40 - SUPERVISION OF W GRAND MULTIPARITY, UNSP TRIMESTER Status: Acute Current Visit: Yes (2) GBS carrier SNOMED Code(s): 2807180691897 Code(s): Z22.330 - CARRIER OF GROUP B STREPTOCOCCUS Status: Acute Current Visit: Yes (3) 39 weeks gestation of SNOMED Code(s): 74693436 Code(s): Z3A.39 - 39 WEEKS GESTATION OF Status: Acute Current Visit: Yes (4) Gestational hypertension SNOMED Code(s): 87529255 Code(s): O13.9 - GESTATIONAL HTN W/O SIGNIFICANT PROTEINURIA, UNSP TRIMESTER Status: Acute Current Visit: Yes Qualifiers: Trimester: third trimester Qualified Code(s): O13.3 - Gestational [ -induced] hypertension without significant proteinuria, third trimester (5) Second degree perineal laceration, delivered, current hospitalization SNOMED Code(s): 332339949 Code(s): O70.1 - SECOND DEGREE PERINEAL LACERATION DURING DELIVERY Status: Acute Current Visit: Yes (6) Nuchal cord without compression, delivered, current hospitalization SNOMED Code(s): 03078035 Code(s): O69.81X0 - LABOR AND DEL COMP BY CORD AROUND NECK, W/O COMPRSN, UNSP Status: Acute Current Visit: Yes - Problem List Review Problem List Initiated/Reviewed/Updated: No - My Orders Last 24 Hours: My Active Orders 09/10/17 06:04 PIH Panel [OM.PC] Stat 09/10/17 10:25 Patient Status [ADT] Routine Activity as Tolerated [RC] PFP Communication Order [RC] ASDIRECTED Notify Provider [RC] PFP Notify Provider [RC] PRN Vital Signs [RC] PER UNIT ROUTINE Nalbuphine [Nubain] 10 mg IVPUSH Q2H PRN Ondansetron [Zofran] 4 mg IVPUSH Q4H PRN Sodium Chloride 0.9% [Saline Flush] 10 ml FLUSH ASDIRECTED PRN Electronic Heart Tones Ext w TOCO [WOMSER] Routine Electronic Heart Tones Internal [WOMSER] Per Unit Routine Peripheral IV Insertion Adult [OM.PC] Routine Resuscitation Status Routine 09/10/17 10:26 Peripheral IV Care [RC] . DIRECTED 09/10/17 10:30 Lactated Ringers [Ringers, Lactated] 1,000 ml IV ASDIRECTED Oxytocin [Pitocin] 20 unit Lactated Ringers [Ringers, Lactated] 1,000 ml IV TITRATE 09/10/17 11:15 Oxytocin/Lactated Ringers [Pitocin in LR 10 Units/1,000 ML] 10 unit in 1,000 ml IV TITRATE 09/10/17 14:30 Ampicillin 1 gm Sodium Chloride 0.9% [Normal Saline] 100 ml IV Q4H 09/10/17 Breakfast Regular Diet [DIET] - Plan Plan:: Plan induction of labor beginning with Cytotec. Brief History: [facility] LIVE . L/D Delivery Note. [id number] Date of : Patient Status: Inpatient. Attending Provider: Sánchez Robertson Number: [id number]. Date: 09/11/17 00:29Initialization Date: 09/11/17 00:29. L & D Note. - General Info. Date of Service: 09/11/17. Mother's Due Date: 09/17/17. - Delivery Note. Labor: Augmented by Oxytocin. Delivery Outcome: Livebirth (Female liveborn 0008 hours 09/11/17 PRADIP Apgars 9/9 weight 4150 g 9 pounds 2.4 ounces nuchal cord 1). Infant Delivery Method: Spontaneous Vaginal Delivery-Single. Infant Delivery Mode: Spontaneous. Presentation: Left Occiput Anterior (PRADIP). Nuchal Cord: Present (Times one), Reduced. Prep: Povidone-Iodine (Betadine. Anesthesia Type: Local, Epidural. Anesthetic: Lidocaine (Xylocaine) 1% Plain (15 mL). Local Anesthetic Volume: Other (15 mL) . Amniotic Fluid Description: Clear. Episiotomy Type: None. Laceration: 2nd Degree (Midline). Suture type: Vicryl (2-0 Vicryl times one), Other (Monocryl 3 -0 times one). Suture size: 2-0. Placenta: Intact, Spontaneous (0012 hours on 09/11/2017 intact central cord insertion). Cord: 3 Vessels. Estimated Blood Loss: 500. Resuscitation Needed: No. [place]: Suctioned, Bulb Syringe, Stimulated, Warmed, [place] Used, Warmer Used. Provider: Sánchez Robertson. Score 1 min: 9. Score 5 min: 9. - Patient Data. Vitals - Most Recent: Last Vital Signs. Temp 97.9 F 09/10/17 12:48. Pulse 84 09/10/17 12:48. Resp 16 09/10/17 12:48. BP 134/65 09/10/17 12:48. Pulse Ox 97 09/10/17 12:48. Weight - Most Recent: 281 lb 11.2 oz. I&O - Last 24 Hours: Intake & Output. 09/10/1712. 14:5922:5906:59. Intake [id number]. [id number]. Lab Results Last 24 Hours: Laboratory Results - last 24 hr. 09/10/1712Range/Units. 06:3006:3006:30. WBC 8.02 ( 3.98-10.04) K/mm3. RBC 4.38 (3.98-5.22) M/mm3. Hgb 10.5 L (11.2-15.7) gm/ L. Hct 32.7 L (34.1-44.9) %. MCV 74.7 L (79.4-94.8) fl. MCH 24.0 L (25.6- 32.2) pg. MCHC 32.1 L (32.2-35.5) g/dl. RDW Std Deviation 44.9 (36.4-46.3) fL. Plt Count 219 (182-369) K/mm3. MPV 11.1 (9.4-12.3) fl. Neut % (Auto) 65.3 (34.0-71.1) %. Lymph % (Auto) 25.8 (19.3-51.7) %. [place] % (Auto) 7.5 ( 4.7-12.5) %. Eos % (Auto) 0.6 L (0.7-5.8). Baso % (Auto) 0.2 (0.1-1.2) %. Neut # (Auto) 5.23 (1.56-6.13) K/mm3. Lymph # (Auto) 2.07 (1.18-3.74) K/mm3. [place] # (Auto) 0.60 H (0.24-0.36) K/mm3. Eos # (Auto) 0.05 (0.04-0.36) K/ mm3. Baso # (Auto) 0.02 (0.01-0.08) K/mm3. Manual Slide Review Abnormal smear. BUN 5 L (7-18) mg/dL. Creatinine 0.6 (0.55-1.02) mg/dL. Est Cr Clr Drug Dosing 160.39 mL/min. Estimated GFR (MDRD) > 60 (>60) mL/min. Uric Acid 5.2 (2.6-6.0) mg/dL. AST 28 (15-37) U/L. ALT 14 (14-59) U/L. Lactate Dehydrogenase 164 (81-234) U/L. Urine Color (Yellow). Urine Appearance (Clear ). Urine pH (5.0-8.0). Ur Specific [place] (1.005-1.030). Urine Protein ( Negative). Urine Glucose (UA) (Negative). Urine Ketones (Negative). Urine Occult Blood (Negative). Urine Nitrite (Negative). Urine Bilirubin (Negative) . Urine Urobilinogen (0.2-1.0). Ur Leukocyte Esterase (Negative). Urine RBC ( 0-5) /hpf. Urine WBC (0-5) /hpf. Ur Epithelial Cells (0-5) /hpf. Urine Bacteria (FEW) /hpf. Urine Mucus (FEW) /hpf. Blood Type A POSITIVE. Gel Antibody Screen Negative. 09/10/17Range/Units. 08:30. WBC (3.98-10.04) K/ mm3. RBC (3.98-5.22) M/mm3. Hgb (11.2-15.7) gm/L. Hct (34.1-44.9) %. MCV (79.4-94.8) fl. MCH (25.6-32.2) pg. MCHC (32.2-35.5) g/dl. RDW Std Deviation (36.4-46.3) fL. Plt Count (182-369) K/mm3. MPV (9.4-12.3) fl. Neut % (Auto) (34.0-71.1) %. Lymph % (Auto) (19.3-51.7) %. [place] % (Auto) ( 4.7-12.5) %. Eos % (Auto) (0.7-5.8). Baso % (Auto) (0.1-1.2) %. Neut # ( Auto) (1.56-6.13) K/mm3. Lymph # (Auto) (1.18-3.74) K/mm3. [place] # (Auto) ( 0.24-0.36) K/mm3. Eos # (Auto) (0.04-0.36) K/mm3. Baso # (Auto) (0.01-0.08) K/mm3. Manual Slide Review. BUN (7-18) mg/dL. Creatinine (0.55-1.02) mg/ dL. Est Cr Clr Drug Dosing mL/min. Estimated GFR (MDRD) (>60) mL/min. Uric Acid (2.6-6.0) mg/dL. AST (15-37) U/L. ALT (14-59) U/L. Lactate Dehydrogenase (81-234) U/L. Urine Color Yellow (Yellow). Urine Appearance Clear (Clear). Urine pH 7.0 (5.0-8.0). Ur Specific [place] 1.020 (1.005-1.030) . Urine Protein Negative (Negative). Urine Glucose (UA) Negative (Negative). Urine Ketones Negative (Negative). Urine Occult Blood Trace-intact H (Negative) . Urine Nitrite Negative (Negative). Urine Bilirubin Negative (Negative). Urine Urobilinogen 0.2 (0.2-1.0). Ur Leukocyte Esterase Negative (Negative). Urine RBC 0-5 (0-5) /hpf. Urine WBC 0-5 (0-5) /hpf. Ur Epithelial Cells 0-5 (0-5) /hpf. Urine Bacteria Few (FEW) /hpf. Urine Mucus Few (FEW) /hpf. Blood Type. Gel Antibody Screen. Med Orders - Current: Current Medications. Diphenhydramine HCl (Benadryl) 25 mg IVPUSH Q6H PRN. PRN Reason: Itching. Ephedrine Sulfate (Ephedrine Sulfate) 5 mg IVPUSH ASDIRECTED PRN. PRN Reason: HYPOTENTSION. Fentanyl (Sublimaze) 100 mcg EPIDUR Q3H PRN. PRN Reason: PAIN. Last Admin: 09/10/17 20:40 Dose: 100 mcg. Fentanyl/Bupivacaine HCl (Fentanyl /Bupivacaine/Ns 2 Mcg-0.125% 100 Ml) 100 ml EPIDUR ASDIRECTED BLAYNE. Last Admin : 09/10/17 20:40 Dose: 100 ml. Ampicillin Sodium 1 gm/ Sodium (Chloride) 100 mls @ 200 mls/hr IV Q4H BLAYNE. Last Admin: 09/10/17 23:26 Dose: 200 mls/hr. Lactated Ringer's (Ringers, Lactated) 1,000 mls @ 100 mls/hr IV ASDIRECTED BLAYNE. Last Admin: 09/10/17 21:31 Dose: 999 mls/hr. Oxytocin 20 unit/ Lactated (Ringer's) 1,002 mls @ 6.01 mls/hr IV TITRATE BLAYNE; 2 MUNITS/MIN. PRN Reason: Protocol. Oxytocin/Lactated Ringer's (Pitocin In Lr 10 Units/1,000 Ml) 10 unit in 1,000 mls @ 12 mls/hr IV TITRATE BLAYNE; 2 MUNITS/MIN. PRN Reason: Protocol. Last Titration: 09/10/17 23:00 Dose: 17 munits/min, 102 mls/hr. Nalbuphine HCl (Nubain) 10 mg IVPUSH Q2H PRN. PRN Reason: Pain (moderate 4-6) . Last Admin: 09/10/17 18:56 Dose: 10 mg. Ondansetron HCl (Zofran) 4 mg IVPUSH Q4H PRN. PRN Reason: Nausea/Vomiting. Sodium Chloride (Saline Flush) 10 ml FLUSH ASDIRECTED PRN. PRN Reason: Keep Vein Open. Discontinued Medications. Ampicillin Sodium 2 gm/ Sodium (Chloride) 100 mls @ 200 mls/hr IV ONETIME ONE. Stop: 09/10/17 10:54. Last Admin: 09/10/17 11:01 Dose: 200 mls/hr. Lidocaine HCl (Xylocaine 1%) Confirm Administered Dose 50 ml .ROUTE .STK-MED ONE. Stop: 09/11/17 00:12. Misoprostol (Cytotec) 25 mcg VAG Q3H BLAYNE. Stop: 09/10/17 16:31. Last Admin: 09/10/17 11:32 Dose: Not Given. - Problem List & Annotations. (1) Anemia affecting second . SNOMED Code (s): 17647228. Code(s): O99.019 - ANEMIA COMPLICATING , UNSPECIFIED TRIMESTER; O09.40 - SUPERVISION OF W GRAND MULTIPARITY, UNSP TRIMESTER Status: Acute Current Visit: Yes. (2) GBS carrier. SNOMED Code(s ): 8542718205475. Code(s): Z22.330 - CARRIER OF GROUP B STREPTOCOCCUS Status : Acute Current Visit: Yes. (3) 39 weeks gestation of . SNOMED Code (s): 35713847. Code(s): Z3A.39 - 39 WEEKS GESTATION OF Status: Acute Current Visit: Yes. (4) Gestational hypertension. SNOMED Code(s): 86441935. Code(s): O13.9 - GESTATIONAL HTN W/O SIGNIFICANT PROTEINURIA, UNSP TRIMESTER Status: Acute Current Visit: Yes. Qualifiers: Trimester: third trimester Qualified Code(s): O13.3 - Gestational [-induced] hypertension without significant proteinuria, third trimester. (5) Second degree perineal laceration, delivered, current hospitalization. SNOMED Code(s) : 007083904. Code(s): O70.1 - SECOND DEGREE PERINEAL LACERATION DURING DELIVERY Status: Acute Current Visit: Yes. (6) Nuchal cord without compression, delivered, current hospitalization. SNOMED Code(s): 65141007. Code(s): O69.81X0 - LABOR AND DEL COMP BY CORD AROUND NECK, W/O COMPRSN, UNSP Status: Acute Current Visit: Yes. - Problem List Review. Problem List Initiated/Reviewed/Updated: No. - My Orders. Last 24 Hours: My Active Orders. 09/10/17 06:04. PIH Panel [OM.PC] Stat. 09/10/17 10:25. Patient Status [ADT] Routine. Activity as Tolerated [RC] PFP. Communication Order [RC ] ASDIRECTED. Notify Provider [RC] PFP. Notify Provider [RC] PRN. Vital Signs [RC] PER UNIT ROUTINE. Nalbuphine [Nubain] 10 mg IVPUSH Q2H PRN. Ondansetron [Zofran] 4 mg IVPUSH Q4H PRN. Sodium Chloride 0.9% [Saline Flush ] 10 ml FLUSH ASDIRECTED PRN. Electronic Heart Tones Ext w TOCO [WOMSER ] Routine. Electronic Heart Tones Internal [WOMSER] Per Unit Routine. Peripheral IV Insertion Adult [OM.PC] Routine. Resuscitation Status Routine. 09/10/17 10:26. Peripheral IV Care [RC] . DIRECTED. 09/10/17 10:30. Lactated Ringers [Ringers, Lactated] 1,000 ml IV ASDIRECTED. Oxytocin [Pitocin ] 20 unit Lactated Ringers [Ringers, Lactated] 1,000 ml IV TITRATE. 09/10/17 11:15. Oxytocin/Lactated Ringers [Pitocin in LR 10 Units/1,000 ML] 10 unit in 1 ,000 ml IV TITRATE. 09/10/17 14:30. Ampicillin 1 gm Sodium Chloride 0.9% [ Normal Saline] 100 ml IV Q4H. 09/10/17 Breakfast. Regular Diet [DIET]. - Plan. Plan:: Plan induction of labor beginning with Cytotec. - Discharge Data Discharge Date: 09/12/17 Discharge Disposition: Home, Self-Care 01 Condition: Good - Discharge Diagnosis/Problem(s) (1) Anemia affecting second SNOMED Code(s): 68445449 ICD Code: O99.019 - ANEMIA COMPLICATING , UNSPECIFIED TRIMESTER; O09.40 - SUPERVISION OF W GRAND MULTIPARITY, UNSP TRIMESTER Status: Acute Current Visit: Yes (2) GBS carrier SNOMED Code(s): 1596943690773 ICD Code: Z22.330 - CARRIER OF GROUP B STREPTOCOCCUS Status: Acute Current Visit: Yes (3) 39 weeks gestation of SNOMED Code(s): 08130382 ICD Code: Z3A.39 - 39 WEEKS GESTATION OF Status: Acute Current Visit: Yes (4) Gestational hypertension SNOMED Code(s): 89310601 ICD Code: O13.9 - GESTATIONAL HTN W/O SIGNIFICANT PROTEINURIA, UNSP TRIMESTER Status: Acute Current Visit: Yes Qualifiers: Trimester: third trimester Qualified Code(s): O13.3 - Gestational [ -induced] hypertension without significant proteinuria, third trimester (5) Second degree perineal laceration, delivered, current hospitalization SNOMED Code(s): 026787874 ICD Code: O70.1 - SECOND DEGREE PERINEAL LACERATION DURING DELIVERY Status : Acute Current Visit: Yes (6) Nuchal cord without compression, delivered, current hospitalization SNOMED Code(s): 25934574 ICD Code: O69.81X0 - LABOR AND DEL COMP BY CORD AROUND NECK, W/O COMPRSN, UNSP Status: Acute Current Visit: Yes - Patient Summary/Data Complications: None Consults: None Hospital Course: Uneventful - Patient Instructions Diet: Regular Diet as Tolerated Driving: Do Not Drive (48 hours) Showering/Bathing: May Shower Notify Provider of: Fever, Increased Pain, Swelling and Redness, Drainage, Nausea and/or Vomiting - Discharge Plan Home Medications: Home Meds Pnv No.122/Iron/Folic Acid [ Multi Tablet] 1 each PO DAILY 09/10/17 [ History] Acetaminophen [Tylenol] 650 mg PO Q4H PRN tablet 09/12/17 [Rx] Docusate Sodium [Colace] 100 mg PO BID PRN cap 09/12/17 [Rx] Ibuprofen [IJD: Ibuprofen] 600 mg PO Q4H PRN tablet 09/12/17 [Rx] Lanolin [Lansinoh HPA] 1 applic TOP ASDIRECTED PRN tube 09/12/17 [Rx] Witch Jenna [Tucks] 1 pad TOP ASDIRECTED PRN pad 09/12/17 [Rx] Referrals: Alice Carvajal MD [Physician] - (4 weeks patient will call Tuesday09/13/17 to confirm appointment.) - Discharge Summary/Plan Comment DC Time >30 min.: No - Patient Data Vitals - Most Recent: Last Vital Signs Temp 98.4 F 09/12/17 01:51 Pulse 87 09/12/17 01:51 Resp 16 09/12/17 01:51 BP 129/77 09/12/17 01:51 Pulse Ox 96 09/12/17 01:51 Weight - Most Recent: 281 lb 11.2 oz Med Orders - Current: Current Medications Acetaminophen (Tylenol) 650 mg PO Q4H PRN PRN Reason: mild pain or fever Benzocaine/Menthol (Dermoplast Pain Relief [place]) 0 gm TOP ASDIRECTED PRN PRN Reason: Perineal Comfort Measure Last Admin: 09/11/17 01:39 Dose: 1 canister Docusate Sodium (Colace) 100 mg PO BID PRN PRN Reason: Constipation Last Admin: 09/11/17 12:37 Dose: 100 mg Emollient Ointment (Lansinoh Hpa) 0 gm TOP ASDIRECTED PRN PRN Reason: Sore Nipples Ibuprofen (Motrin) 600 mg PO Q4H PRN PRN Reason: Mild pain or fever Last Admin: 09/12/17 05:32 Dose: 600 mg Oxycodone/Acetaminophen (Percocet 325-5 Mg) 2 tab PO Q4H PRN PRN Reason: Pain (moderate 4-6) Witch Jenna (Tucks) 1 pad TOP ASDIRECTED PRN PRN Reason: Hemorrhoid pain Last Admin: 09/11/17 01:39 Dose: 1 tub Discontinued Medications Diphenhydramine HCl (Benadryl) 25 mg IVPUSH Q6H PRN PRN Reason: Itching Ephedrine Sulfate (Ephedrine Sulfate) 5 mg IVPUSH ASDIRECTED PRN PRN Reason: HYPOTENTSION Fentanyl (Sublimaze) 100 mcg EPIDUR Q3H PRN PRN Reason: PAIN Last Admin: 09/10/17 20:40 Dose: 100 mcg Fentanyl/Bupivacaine HCl (Fentanyl/Bupivacaine/Ns 2 Mcg-0.125% 100 Ml) 100 ml EPIDUR ASDIRECTED BLAYNE Last Admin: 09/10/17 20:40 Dose: 100 ml Ampicillin Sodium 2 gm/ Sodium (Chloride) 100 mls @ 200 mls/hr IV ONETIME ONE Stop: 09/10/17 10:54 Last Admin: 09/10/17 11:01 Dose: 200 mls/hr Ampicillin Sodium 1 gm/ Sodium (Chloride) 100 mls @ 200 mls/hr IV Q4H BLAYNE Last Admin: 09/10/17 23:26 Dose: 200 mls/hr Lactated Ringer's (Ringers, Lactated) 1,000 mls @ 100 mls/hr IV ASDIRECTED BLAYNE Last Admin: 09/10/17 21:31 Dose: 999 mls/hr Oxytocin 20 unit/ Lactated (Ringer's) 1,002 mls @ 6.01 mls/hr IV TITRATE BLAYNE; 2 MUNITS/MIN PRN Reason: Protocol Last Titration: 09/11/17 01:33 Dose: 250 mls/hr Oxytocin/Lactated Ringer's (Pitocin In Lr 10 Units/1,000 Ml) 10 unit in 1,000 mls @ 12 mls/hr IV TITRATE BLAYNE; 2 MUNITS/MIN PRN Reason: Protocol Last Titration: 09/10/17 23:00 Dose: 17 munits/min, 102 mls/hr Lidocaine HCl (Xylocaine 1%) Confirm Administered Dose 50 ml .ROUTE .STK-MED ONE Stop: 09/11/17 00:12 Last Admin: 09/11/17 01:32 Dose: 50 ml Misoprostol (Cytotec) 25 mcg VAG Q3H BLAYNE Stop: 09/10/17 16:31 Last Admin: 09/10/17 11:32 Dose: Not Given Nalbuphine HCl (Nubain) 10 mg IVPUSH Q2H PRN PRN Reason: Pain (moderate 4-6) Last Admin: 09/10/17 18:56 Dose: 10 mg Ondansetron HCl (Zofran) 4 mg IVPUSH Q4H PRN PRN Reason: Nausea/Vomiting Sodium Chloride (Saline Flush) 10 ml FLUSH ASDIRECTED PRN PRN Reason: Keep Vein Open *Q Meaningful Use (DIS) - VTE *Q VTE Criteria *Q: - Stroke *Q Stroke Criteria *Q: - AMI *Q AMI Criteria *Q:
[2017-09-12 11:50] VITALS: BP 125/90
== END 2017-09-12 11:30 | disposition home or self-care (01) | DRG 560 ==
LOC: JD.OBCHECK 05:23 → JD.OB 05:23 → JD.OBCHECK 10:25 → OBSVTOIN 09-11 00:08 → JD.OB 09-11 00:08
PROVIDERS: ADMIT Obstetrics & Gynecology; ATTEND Obstetrics & Gynecology
PROC: 10E0XZZ Delivery of Products of Conception, External Approach (ICD-10-PCS; principal; 2017-09-11)
PROC: 0KQM0ZZ Repair Perineum Muscle, Open Approach (ICD-10-PCS; 2017-09-11)
PROC: 00HU33Z Insertion of Infusion Device into Spinal Canal, Percutaneous Approach (ICD-10-PCS; 2017-09-11)
PROC: 3E0R3BZ Introduction of Anesthetic Agent into Spinal Canal, Percutaneous Approach (ICD-10-PCS; 2017-09-11)
DX: O13.4 Gestational [pregnancy-induced] hypertension without significant proteinuria, complicating childbirth (principal); O99.824 Streptococcus B carrier state complicating childbirth; Z3A.39 39 weeks gestation of pregnancy; Z37.0 Single live birth; Z87.891 Personal history of nicotine dependence; O69.81X0 Labor and delivery complicated by cord around neck, without compression, not applicable or unspecified; O70.1 Second degree perineal laceration during delivery
CPT/HCPCS: 36415; 51702; 59300; 59409; 81001; 82565; 83615; 84450; 84460; 84520; 84550; 85025; 86850; 86900; 86901; A9270-GY; J0290; J2300; J2590; J3010; J7030; J7120

== ENCOUNTER 2018-09-14 02:38 | Emergency (ER) | payer BC, MEDICAID ==
[2018-09-14 02:52] VITALS: BP 119/79
[2018-09-14] MEDS ORDERED: Hyoscyamine 0.125 MG Tab.SL SL ONE (02:53)
[2018-09-14] MEDS ORDERED: Metoclopramide 10 MG/2 ML SDV IVPUSH ONE (02:54)
[2018-09-14] MEDS ORDERED: HYDROmorphone 1 MG/ML Syringe IVPUSH ONE (02:54)
--- NOTE | 2018-09-14 02:56 | EDM.PDOC ---
ED HPI GENERAL MEDICAL PROBLEM - General Chief Complaint: Abdominal Pain Stated Complaint: ABDOMINAL PAIN Time Seen by Provider: 09/14/18 02:50 Source of Information: Reports: Patient History Limitations: Reports: No Limitations - History of Present Illness INITIAL COMMENTS - FREE TEXT/NARRATIVE: 22-year-old female presents to the ED with acute onset of severe epigastric pain radiating slightly up into her chest and along the right costal margin. No pain is appreciated in her back or under her shoulder blade. It does hurt very badly to take a deep breath. No previous similar types pain. She gets occasional heartburn but has not used any Tums or Rolaids. She ate leftovers which were not all that greasy about 2100 hrs. last night. She has had 2 previous pregnancies. Mild nausea without any vomiting. Bowels have been working okay. No previous abdominal surgery. Currently on no medications. Using Mirena ring for control Onset: Today, Sudden Onset Date: 09/14/18 Onset Time: 02:00 Duration: Minutes: Location: Reports: Abdomen Quality: Reports: Ache (Epigastrium and right upper quadrant of the abdomen.), Other (Anus constant with a colicky component) Severity: Severe Improves with: Reports: None (Tendon at 10) Worsens with: Reports: None Context: Denies: Activity, Exercise, Lifting, Sick Contact, Trauma, Other Associated Symptoms: Reports: Loss of Appetite, Nausea/Vomiting (Nausea with no vomiting). Denies: No Other Symptoms, Confusion, Chest Pain, Cough, cough w sputum, Diaphoresis, Fever/Chills, Headaches, Malaise, Shortness of Breath, Syncope Treatments [employer]: Reports: Other (see below) (None.) Upper Abdominal Pain Score (Numeric/FACES): 6 - Related Data Allergies Allergy/AdvReac Type Severity Reaction Status Date / Time No Known Allergies Allergy Verified 09/14/18 02:52 Home Meds: Home Meds . 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 vits Social & Family History - Family History Family Medical History: Noncontributory - Caffeine Use Caffeine Use: Reports: None - Living Situation & Occupation Living situation: Reports: Occupation: Unemployed ED ROS GENERAL - Review of Systems Review Of Systems: See Below Constitutional: Reports: Decreased Appetite. Denies: Fever, Chills, Malaise, Weakness, Fatigue HEENT: Reports: No Symptoms Respiratory: Reports: Shortness of Breath (Can't take a full deep breath as it makes the abdominal pain much worse.) Cardiovascular: Reports: Chest Pain (His pain in the epigastrium rating up into the lower retrosternal space. Dictated by deep breathing) Endocrine: Reports: No Symptoms GI/Abdominal: Reports: Abdominal Pain (2. Epigastric pain that awoke from sleep and along the right costal margin. No radiation of the pain into her back or flank.) : Reports: No Symptoms Musculoskeletal: Reports: No Symptoms Skin: Reports: No Symptoms Neurological: Reports: No Symptoms Psychiatric: Reports: No Symptoms Hematologic/Lymphatic: Reports: No Symptoms ED EXAM, GI/ABD - Physical Exam Exam: See Below Exam Limited By: No Limitations General Appearance: Alert, WD/WN, Moderate Distress (She is hunched over with severe pain in the epigastrium primarily.) Eyes: Bilateral: Normal Appearance (No jaundice) Throat/Mouth: Normal Inspection, Normal Lips, Normal Teeth, Normal Oropharynx Respiratory/Chest: Lungs Clear (Mild tachypnea.), Normal Breath Sounds, Chest Non-Tender, Respiratory Distress Cardiovascular: Normal Peripheral Pulses, Regular Rate, Rhythm, No Edema, No Gallop, No Murmur, No Rub GI/Abdominal Exam: Normal Bowel Sounds, Soft, Guarding, Tender (Very tender along the right costal margin with a positive Hermosillo's sign.), Other (Positive Hermosillo sign.). No: Rigid, Rebound Back Exam: Normal Inspection, Full Range of Motion. No: CVA Tenderness (L), CVA Tenderness (R) Extremities: Normal Inspection, Normal Range of Motion, Non-Tender, No Pedal Edema Neurological: Alert, Oriented, CN II-XII Intact, Normal Cognition Psychiatric: Normal Affect, Other Skin Exam: Warm, Dry, Intact, Normal Color, No Rash Course - Vital Signs Last Recorded V/S: Last Vital Signs Temp 36.6 C 09/14/18 02:49 Pulse 78 09/14/18 02:49 Resp 18 09/14/18 02:49 BP 119/79 09/14/18 02:49 Pulse Ox 99 09/14/18 02:49 - Orders/Labs/Meds Orders: Active Orders 24 hr Category Date Time Status Abdomen 1V Flat [CR] Stat Exams 09/14/18 02:55 Taken CBC WITH MANUAL DIFF [HEME] Stat Lab 09/14/18 03:00 Results Sodium Chloride 0.9% [Normal Saline] 1,000 ml Med 09/14/18 03:00 Active IV ASDIRECTED Medication Orders Sodium Chloride (Normal Saline) 1,000 mls @ 150 mls/hr IV ASDIRECTED BLAYNE Last Admin: 09/14/18 03:01 Dose: 150 mls/hr Labs: Laboratory Tests 09/14/18 09/14/18 Range/Units 03:00 03:00 WBC 7.73 (3.98-10.04) K/mm3 RBC 5.63 H (3.98-5.22) M/mm3 Hgb 15.6 (11.2-15.7) gm/L Hct 44.8 (34.1-44.9) % MCV 79.6 (79.4-94.8) fl MCH 27.7 (25.6-32.2) pg MCHC 34.8 (32.2-35.5) g/dl RDW Std Deviation 39.1 (36.4-46.3) fL Plt Count 309 (182-369) K/mm3 MPV 10.4 (9.4-12.3) fl Sodium 138 (136-145) mEq/L Potassium 3.3 L (3.5-5.1) mEq/L Chloride 102 (98-107) mEq/L Carbon Dioxide 21 (21-32) mEq/L Anion Gap 18.3 H (5-15) BUN 22 H (7-18) mg/dL Creatinine 0.9 (0.55-1.02) mg/dL Est Cr Clr Drug Dosing 91.79 mL/min Estimated GFR (MDRD) > 60 (>60) mL/min BUN/Creatinine Ratio 24.4 H (14-18) Glucose 101 (74-106) mg/dL Calcium 9.7 (8.5-10.1) mg/dL Total Bilirubin 1.3 H (0.2-1.0) mg/dL AST 31 (15-37) U/L ALT 22 (14-59) U/L Alkaline Phosphatase 104 (46-116) U/L C-Reactive Protein 0.8 (<1.0) mg/dL Total Protein 8.3 H (6.4-8.2) g/dl Albumin 4.3 (3.4-5.0) g/dl Globulin 4.0 gm/dL Albumin/Globulin Ratio 1.1 (1-2) Amylase 61 (25-115) U/L Meds: Medications Generic Name Dose Route Start Last Admin Trade Name Freq PRN Reason Stop Dose Admin Sodium Chloride 1,000 mls @ 150 mls/hr 09/14/18 03:00 09/14/18 03:01 Normal Saline IV 150 mls/hr ASDIRECTED BLAYNE Administration Discontinued Medications Generic Name Dose Route Start Last Admin Trade Name Freq PRN Reason Stop Dose Admin Hydromorphone HCl 1 mg 09/14/18 02:54 09/14/18 03:05 Dilaudid IVPUSH 09/14/18 02:55 1 mg ONETIME ONE Administration Hyoscyamine 0.125 mg 09/14/18 02:53 09/14/18 02:58 Hyomax-Sl SL 09/14/18 02:54 0.125 mg ONETIME ONE Administration Magnesium Citrate 240 ml 09/14/18 03:48 Citrate Of Magnesia PO 09/14/18 03:49 ONETIME ONE Metoclopramide HCl 10 mg 09/14/18 02:54 09/14/18 03:01 Reglan IVPUSH 09/14/18 02:55 10 mg ONETIME ONE Administration - Radiology Interpretation Free Text/Narrative:: 22-year-old female presents to the ED with acute onset of severe epigastric right upper quadrant abdominal pain with no radiation. Local from sleep within the last hour. She ate leftover after supper last about 2100 hrs. She didn't think it was all that greasy of fat. She not been having any epigastric problems or GERD. Associated nausea without any vomiting. Patient is doubled up in pain at the present time. Her slightly hyperactive on exam. Examination shows tenderness in the epigastrium and along the right costal margin with a positive Hermosillo's sign highly suggestive of underlying gallbladder disease. I am less and 0.125 mg under the tongue. IV will be normal saline at 150 mils per hour. Given Dilaudid 1 mg IV with Reglan 10 mg IV. On view of the abdomen will be obtained. Routine labs including a serum amylase and CRP to be done. I will do a bedside ultrasound of the gallbladder after these other tests were done and she is more comfortable. - Re-Assessments/Exams Free Text/Narrative Re-Assessment/Exam: 09/14/18 03:47 KUB reveals reveals increased stool throughout the right hemicolon and hepatic flexure of the transverse colon. Amount of air in the left upper quadrant underneath the diaphragm. Bedside ultrasound performed and gallbladder was visualized quite well although it is not very well distended. No stones were identified. She is pretty well pain free at this time. She still has a very mildly positive Hermosillo sign. 09/14/18 03:52 Labs reveal a normal white count at 7.73 with differential pending. Hemoglobin is 15.6 with hematocrit of 44.8. Platelet count is normal 309,000. Sodium is 138 with potassium slightly low at 3.3. Chloride 102 with a bicarbonate 21. Anion gap is 18.3. BUN is 22. Glucose is 101. Total bilirubin is 1.3. AST is 31. ALT is 22. Alk phosphatase 104. C-reactive protein is 0.8. Total protein slightly elevated at 8.3 with an albumin fraction of 4.3 suggesting some degree of hemoconcentration. Amylase is 61. Labs are all essentially normal. Patient will be discharged to home at this time. Departure - Departure Time of Disposition: 03:49 Disposition: Home, Self-Care 01 Condition: Fair Clinical Impression: Constipation by delayed colonic transit Abdominal pain Qualifiers: Abdominal location: epigastric Qualified Code(s): R10.13 - Epigastric pain - Discharge Information *PRESCRIPTION DRUG MONITORING PROGRAM REVIEWED*: Not Applicable *COPY OF PRESCRIPTION DRUG MONITORING REPORT IN PATIENT ANGEL LUIS: Not Applicable Instructions: Constipation, Adult, [id number] Referrals: PCP,None [Primary Care Provider] - Forms: ED Department Discharge Additional Instructions: Evaluation the emergency room this morning in regards to wakening from sleep with severe epigastric right upper quadrant abdominal pain. Initial examination suggested the possibility of gallbladder attack. However gallbladder ultrasound of the bedside does not show any gallstones. Extremities the abdomen does show increased stool throughout the right hemicolon and up underneath your liver and across to the midline of the upper abdomen. It appears that constipation is the likely culprit in terms of causing your pain. With intravenous Dilaudid 1 mg and antinausea medication Reglan 10 mg IV. Treatment of the problem is magnesium citrate or Citroma 8 ounces mixed with 6 ounces of juice of choice taken by mouth once. This will take 1-3 hours to start work in your bowels well will work on average 3 or 4 times providing bowel cleanse. Should relieve her pain completely. Follow-up with personal care physician or return to ED if any further problems occur. - My Orders Last 24 Hours: My Active Orders 09/14/18 02:55 Abdomen 1V Flat [CR] Stat 09/14/18 03:00 CBC WITH MANUAL DIFF [HEME] Stat Sodium Chloride 0.9% [Normal Saline] 1,000 ml IV ASDIRECTED - Assessment/Plan Last 24 Hours: My Active Orders 09/14/18 02:55 Abdomen 1V Flat [CR] Stat 09/14/18 03:00 CBC WITH MANUAL DIFF [HEME] Stat Sodium Chloride 0.9% [Normal Saline] 1,000 ml IV ASDIRECTED
[2018-09-14] MEDS ORDERED: Sodium Chloride 0.9% 1,000 ML IV SCH (03:00)
[2018-09-14] MEDS ORDERED: Magnesium Citrate Solution 296 ML Bottle PO ONE (03:48)
--- NOTE | 2018-09-14 06:58 | CR ---
Abdomen: Supine view of the abdomen was obtained. Comparison: No prior abdominal imaging. IUD is present within the pelvis. No abnormal calcifications or soft tissue abnormality is seen. Minimal increased stool is noted within the colon. Bowel gas pattern is otherwise unremarkable. Bony structures are within normal limits for the patient's age. Impression: 1. Incidental IUD. 2. Mild increased stool is noted within the colon. Diagnostic code #2
== END 2018-09-14 04:03 | disposition home or self-care (01) ==
LOC: JD.ED 02:38
DX: K59.01 Slow transit constipation (principal)
CPT/HCPCS: 36415; 74018; 80053; 82150; 85007; 85027; 86140; 96361; 96374; 96375; 99284; A9270; J1170; J2765; J7040

== ENCOUNTER 2021-01-06 20:04 | Emergency (ER) | payer BC, OTHER ==
[2021-01-06 20:22] VITALS: BP 144/96; PULSE 101
--- NOTE | 2021-01-06 21:02 | EDM.PDOC ---
ED HPI GENERAL MEDICAL PROBLEM - General Chief Complaint: Lower Extremity Injury/Pain Stated Complaint: ANKLE INJURY Time Seen by Provider: 01/06/21 20:22 Source of Information: Reports: Patient, RN Notes Reviewed History Limitations: Reports: No Limitations - History of Present Illness INITIAL COMMENTS - FREE TEXT/NARRATIVE: Patient is a 25-year-old female presenting to the emergency department with complaints of pain and swelling to the lateral aspect of her right ankle. States she was playing volleyball and came down on it wrong. She has been able to ambulate on it since the time of the injury due to pain. She has had a number of previous ankle sprains but denies any previous fractures to this extremity. 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 vits Social & Family History - Family History Family Medical History: No Pertinent Family History - Tobacco Use Tobacco Use Status *Q: Current Every Day Tobacco User Years of Tobacco use: 10 Packs/Tins Daily: 1 - Caffeine Use Caffeine Use: Reports: None - Recreational Drug Use Recreational Drug Use: No - Living Situation & Occupation Living situation: Reports: Occupation: Unemployed Review of Systems - Review of Systems Review Of Systems: Comprehensive ROS is negative, except as noted in HPI. ED EXAM, GENERAL - Physical Exam Exam: See Below Exam Limited By: No Limitations General Appearance: Alert, WD/WN, No Apparent Distress Respiratory/Chest: No Respiratory Distress, Lungs Clear, Normal Breath Sounds, No Accessory Muscle Use, Chest Non-Tender Cardiovascular: Normal Peripheral Pulses, Regular Rate, Rhythm, No Edema, No Gallop, No JVD, No Murmur, No Rub Extremities: Other (Swelling and tenderness to palpation over the right lateral malleolus. No tenderness of the foot or proximal to this area. CMS intact distal to the injury.) Neurological: Alert, Oriented, CN II-XII Intact, Normal Cognition, Normal Gait, Normal Reflexes, No Motor/Sensory Deficits Psychiatric: Normal Affect, Normal Mood Skin Exam: Warm, Dry, Intact, Normal Color, No Rash Course - Vital Signs Last Recorded V/S: Last Vital Signs Temp 98.5 F 01/06/21 20:20 Pulse 101 H 01/06/21 20:20 Resp 20 01/06/21 20:20 BP 144/96 H 01/06/21 20:20 Pulse Ox 100 01/06/21 20:20 - Orders/Labs/Meds Orders: Active Orders 24 hr Category Date Time Status Ankle Min 3V Rt [CR] Stat Exams 01/06/21 20:22 Taken - Re-Assessments/Exams Free Text/Narrative Re-Assessment/Exam: 01/06/21 20:59 X-ray of the right ankle reviewed by myself and Dr. Anaya. No visible fractures. Patient will be placed in a stirrup splint and provided crutches. Advised nonweightbearing until pain improves and then she may gradually begin to ambulate on the extremity. Discharge instructions as documented. Departure - Departure Time of Disposition: 20:59 Disposition: Home, Self-Care 01 Condition: Good Clinical Impression: Ankle sprain Qualifiers: Encounter type: initial encounter Involved ligament of ankle: unspecified ligament Laterality: right Qualified Code(s): S93.401A - Sprain of unspecified ligament of right ankle, initial encounter - Discharge Information *PRESCRIPTION DRUG MONITORING PROGRAM REVIEWED*: No *COPY OF PRESCRIPTION DRUG MONITORING REPORT IN PATIENT ANGEL LUIS: No Instructions: Ankle Sprain, [id number] Additional Instructions: You were seen in the emergency department this evening for pain and swelling to your right ankle after coming down around playing volleyball. X-rays were completed and showed no obvious fractures. You been placed in a stirrup splint. Recommend wearing this at all times until swelling and pain have resolved. You been provided with crutches. You should remain nonweightbearing until there is improvement in the pain and swelling. You may then begin to gradually begin to bear weight on the ankle. If you fail to have improvement in the pain and swelling over the course of the next week, recommend follow-up in the clinic for reevaluation. Return to ER for any new or worsening symptoms of concern. Sepsis Event Note (ED) - Evaluation Sepsis Screening Result: No Definite Risk - Focused Exam Vital Signs: Vital Signs Temp Pulse Resp BP Pulse Ox 01/06/21 20:20 98.5 F 101 H 20 144/96 H 100 - My Orders Last 24 Hours: My Active Orders 01/06/21 20:22 Ankle Min 3V Rt [CR] Stat - Assessment/Plan Last 24 Hours: My Active Orders 01/06/21 20:22 Ankle Min 3V Rt [CR] Stat
--- NOTE | 2021-01-07 08:47 | CR ---
Right ankle: 4 views of the right ankle were obtained. Comparison: No prior ankle study is available. Ankle mortise is symmetric. Small calcifications are seen off the medial malleolus which could be old or represent a small acute avulsion injury off the cortex. No additional fracture, dislocation or other bony abnormality is appreciated. Impression: 1. Small calcifications off the medial malleolus either old or due to acute small avulsion injury off the cortex. 2. Other portions of the right ankle study are unremarkable. Diagnostic code #3
== END 2021-01-06 21:30 | disposition home or self-care (01) ==
LOC: JD.ED 20:04
DX: S93.401A Sprain of unspecified ligament of right ankle, initial encounter (principal); E11.9 Type 2 diabetes mellitus without complications; Z79.84 Long term (current) use of oral hypoglycemic drugs; Z72.0 Tobacco use; X58.XXXA Exposure to other specified factors, initial encounter; Y93.68 Activity, volleyball (beach) (court)
CPT/HCPCS: 73610-26-RT; 73610-RT; 99282; 99283-25